=== PATIENT | female | born 1975 | race Hispanic/Latino ===

== ENCOUNTER 2016-11-28 08:47 | Day surgery (SDC) | payer OTHER ==
[2016-11-19 14:13] VITALS: BMI 38.6
[2016-11-28 09:11] LABS: ADD MANUAL DIFF? NO
[2016-11-28 09:22] LABS: BLOOD UREA NITROGEN 15 mg/dL (7-21); CALCIUM 9.5 mg/dL (8.4-10.5); CARBON DIOXIDE 29 mmol/L (21-33); CHLORIDE 101 mmol/L (98-107); GFR AFRICAN-AMERICAN > 60; GLUCOSE,RANDOM 90 mg/dL (70-110); POTASSIUM 4.2 mmol/L (3.6-5.0); SODIUM 138 mmol/L (132-148)
[2016-11-28 09:25] LABS: BASO # 0.03 K/mm3 (0.0-2.0); BASO % 0.4 % (0.0-3.0); EOS # 0.1 (0.0-0.7); EOS % 1.3 % (1.5-5.0); GRAN # 4.12 (1.4-6.5); HEMATOCRIT 38.7 % (36.0-48.0); LYMPH # 2.1 (1.2-3.4); LYMPH % 31.1 % (22.0-35.0); MEAN CORPUSCULAR HGB CONC 33.3 g/dl (31.0-37.0); MEAN PLATELET VOLUME 9.8 fl (7.0-11.0); MONO # 0.4 (0.1-0.6); MONO % 6.2 % (1.0-6.0); PLATELET COUNT 363 10^3/uL (120.0-450.0); RED CELL DISTRIBUTION WIDTH 13.5 % (11.5-14.5); WHITE BLOOD COUNT 6.8 10^3/ul (4.5-11.0)
[2016-11-28 09:44] LABS: INR 0.96 (0.93-1.08); PARTIAL THROMBOPLASTIN TIME 28.5 Seconds (23.7-30.8)
--- NOTE | 2016-11-28 10:28 | CP.SDSHP ---
Same Day Surgery H & P - History Proposed Procedure: Ultrasound guided thyroid biopsy Pre-Op Diagnosis: Thyroid nodule - Previous Medical/Surgical History Cardiac: Hypertension, Other (history of a blood clot in the heart ,treated with anticoagulants.It was attributed to smoking and control pills.Pt w.as 27 yrs old at that time.) Pulmonary: Asthma, Smoking (smoked 1PPd x 20 years,quit 2 years ago), Other ( History of lung nodules) Endocrine/Metabolic: Thyroid Disease (Had hypothyroidism,then hyperthyroidism.Ultrasound revealed increased RAIU ,.Pt waas advised ) Misc: Anemia (Iron deficiency anemia), Other (GERD,Anxiety) Pain: 0. No Pain Comments: Earlier test report from 2016 showed thyroid nodule. Thyroid uptake and scan from 09/05/16 shows increased uptake. Previous Surgical History: Cardiac cath. Hysterectomy. Colonoscopy/upper endoscopy - Allergies Allergies: Allergies No Known Allergies Allergy (Verified 11/19/16 14:13) - Physical Exam General Appearance: Well nourished female Vital Signs: Vital Signs 11/28/16 09:24 Temperature 98 F Pulse Rate 88 Respiratory 17 Rate Blood Pressure 153/88 H O2 Sat by Pulse 99 Oximetry Mental Status: Alert & Oriented x3 Neuro: WNL Heart: WNL Lungs: WNL - {Optional Preform as Required} Abdomen: WNL - Impression Impression: Thyroid Nodule - Date & Time Date: 11/28/16 Time: 10:11 Short Stay Discharge - Short Stay Discharge Admitting Diagnosis/Reason for Visit: THYROID NODULE E04.9 Disposition: HOME/ ROUTINE Referrals: Wesly Moss MD [Primary Care Provider] -
[2016-11-28] MEDS ORDERED: Midazolam 2 MG/2 ML VIAL ONE (10:55)
[2016-11-28] MEDS ORDERED: Oxycodone/Acetaminophen 5/325 mg Tab PO PRN (11:24)
[2016-11-28] MEDS ORDERED: Sodium Chloride 0.45% 1,000 ML IV SCH (11:30)
[2016-11-28 12:28] VITALS: RESP 18; TEMP 98.5; O2SAT 98
[2016-11-28 14:04] VITALS: BP 132/80; PULSE 70
--- NOTE | 2016-12-04 22:02 | US ---
PROCEDURE: Ultrasound-guided left thyroid fine needle aspiration biopsy. CLINICAL HISTORY: Hyperthyroidism. Probable thyroiditis. Confirm with biopsy. PHYSICIAN(S): Harshad Kaplan M.D. TECHNIQUE: The relative risks and indications for the procedure were explained to the patient and consent obtained. The patient was placed supine on the stretcher with the neck extended and preliminary sonography of the thyroid performed. This reveal normal size but somewhat heterogeneous thyroid gland diffusely.. No dominant nodules were appreciated. The neck was prepped and draped in the usual sterile fashion. Conscious sedation and monitoring were provided throughout the procedure by a nurse. 1% Xylocaine was used to anesthetize the skin and soft tissues at the access site. Three passes with a 22-gauge needle were performed under ultrasound guidance for fine needle aspiration of the left lobe of the thyroid. The slides were reviewed by pathology and deemed adequate. The patient tolerated the procedure well. IMPRESSION: 1. Ultrasound guided fine needle aspiration of left lobe of the thyroid.
== END 2016-11-28 14:05 | disposition home or self-care (01) ==
LOC: SDS 08:47
PROVIDERS: ATTEND Radiology Vascular & Interventional Radiology
DX: E06.3 Autoimmune thyroiditis (principal); E04.1 Nontoxic single thyroid nodule; I10 Essential (primary) hypertension; J45.909 Unspecified asthma, uncomplicated; K21.9 Gastro-esophageal reflux disease without esophagitis; D50.9 Iron deficiency anemia, unspecified; Z87.891 Personal history of nicotine dependence
CPT/HCPCS: 10022; 36415; 80048; 85025; 85610; 85730; 88173; 88305; J2250; J2405; J3010; J7030

== ENCOUNTER 2018-11-06 07:53 | Outpatient (CLI) | payer OTHER | END 2018-11-06 07:54 | disposition home or self-care (01) | LOC: LAB 07:53 | DX: I10 Essential (primary) hypertension (principal); D64.9 Anemia, unspecified; E03.9 Hypothyroidism, unspecified; Z83.3 Family history of diabetes mellitus; E04.1 Nontoxic single thyroid nodule; Z13.820 Encounter for screening for osteoporosis; Z12.31 Encounter for screening mammogram for malignant neoplasm of breast; M81.0 Age-related osteoporosis without current pathological fracture ==